=== PATIENT | male | born 1975 | race Caucasian/White ===

== ENCOUNTER → 2018-12-05 | Day surgery (SDC) | payer OTHER ==
[~2018-12-05] MED LIST: ACETAMINOPHEN/CODEINE 300MG - 30MG TAB ONE; ATORVASTATIN CA20 MG PO; DEXAMETHASONE SOD PHOS INJ 4 MG/ML VIAL ONE; EPINEPHRINE HCL 1:1000 1ML 1 MG/ML AMP ONE; FENTANYL CITRATE/PF 100MCG/2 ML INJ ONE; GLYCOPYRROLATE INJ 1MG/ 5 ML SYR ONE; LIDOCAINE 1% W/EPINEPHRINE 20 ML VIAL ONE; LIDOCAINE HCL 2% JELLY 5 ML TUBE ONE; LIDOCAINE HCL 2% LOCAL INJ 5 ML SDV VIAL INJ ONE; MIDAZOLAM HCL 2 MG/2 ML VIAL ONE; NEOSTIGMINE 5 MG/5ML SYR ONE; OMEPRAZOLE40 MG PO; ONDANSETRON HCL INJ 2MG/ML 2ML 2 MG/ML VIAL ONE; PROPOFOL IV EMULSION 10 MG/ML 20 ML VIAL ONE; ROCURONIUM BROMIDE 10 MG/ML 5ML VIAL ONE; SCOPOLAMINE 1.5 MG PATCH ONE; SEVOFLURANE INHAL SOLN 250 ML PEN BTL ONE; VITAMIN B-121000 MCG PO; VITAMIN D35000 UNIT PO; trintellix PO
--- OUTSIDE RECORDS SUMMARY | 2018-12-05 06:49 | XMS REPORT | Clinical Summary ---
Author Author [facility] Address Unknown Phone Unavailable Care Team Providers Care Office Admin Name Role Phone Davion Ramey MD PCP Unavailable Allergies Comments Active Allergy Reactions Severity Noted Date Iodine Anaphylaxis High 12/07/2017 Levofloxacin Hives 12/07/2017 Medications End Date Status Medication Sig Dispensed Refills Start Date Active omeprazole (PriLOSEC) 40 Take 40 mg by 0 MG capsule mouth daily. 8 Active TRINTELLIX 10 mg tablet TK 1 T PO QD 5 8 Active sildenafil (VIAGRA) 50 MG Take 50 mg by 0 tablet mouth daily 8 as needed. Active atorvastatin (LIPITOR) 20 TK 1 T PO QD 0 03/20/201 MG tablet 8 03/07/2018 Discontinued sertraline (ZOLOFT) 100 TK 1 T PO QD 1 10/19/201 MG tablet 8 03/27/2018 Discontinued simvastatin (ZOCOR) 10 MG Take 10 mg by 0 tablet mouth nightly. 03/27/2018 Discontinued testosterone cypionate Inject into 0 (DEPOTESTOTERONE the shoulder, CYPIONATE) 200 mg/mL thigh, or injection buttocks every 14 (fourteen) days. 03/08/2018 Discontinued sodium,potassium,mag Used As 2 Bottle 0 sulfates (SUPREP BOWEL directed 8 PREP KIT) 17.5-3.13-1.6 gram recon soln 03/07/2018 Discontinued cholecalciferol, vitamin Take 1,000 0 D3, (VITAMIN D3) 1,000 Units by unit tablet mouth daily. Active Problems Problem Noted Date Celiac disease 09/20/2018 Obesity (BMI 30.0-34.9) 09/20/2018 Encounters Care Team Description Date Type Specialty Altagracia Jimenez MD Celiac disease (Primary Dx); Obesity (BMI 30.0-34.9) 09/20/2018 Office Visit Gastroenterology Altagracia Jimenez MD Celiac disease (Primary Dx); Adenomatous polyp of colon, unspecified part of colon; Class 1 obesity due to excess calories without serious comorbidity with body mass index (BMI) of 31.0 to 31.9 in adult 03/27/2018 Office Visit Gastroenterology Herberth Shelton MD 03/08/2018 Anesthesia Gastroenterology Event Enoc Jeronimo MD COLONOSCOPY with bx and snare 03/08/2018 Surgery Gastroenterology Enoc Jeronimo MD Diarrhea; Chronic GERD 03/08/2018 Hospital Gastroenterology Encounter Altagracia Jimenez MD 02/17/2018 Telephone Gastroenterology Ema Coats LPN 01/03/2018 Telephone Gastroenterology Altagracia Jimenez MD Gastroesophageal reflux disease, esophagitis presence not specified (Primary Dx); Diarrhea, unspecified type; Former tobacco use; Class 1 obesity due to excess calories without serious comorbidity with body mass index (BMI) of 31.0 to 31.9 in adult 12/07/2017 Office Visit Gastroenterology after 12/04/2017 Family History Medical History Relation Name Comments Heart defect Father Relation Name Status Comments Father Alive Mother Alive Social History Date Tobacco Use Types Packs/Day Years Used Quit: 12/07/2006 Former Smoker Cigarettes 0.5 15 Smokeless Tobacco: Former User Alcohol Use Drinks/Week oz/Week Comments Yes 1 Cans of 0.6 rarely beer Sex Assigned at Date Recorded Not on file Industry Job Start Date Occupation Not on file Not on file Not on file Travel End Travel History Travel Start No recent travel history available. Last Filed Vital Signs Time Taken Vital Sign Reading 09/20/2018 8:51 AM CDT Blood Pressure 117/77 09/20/2018 8:51 AM CDT Pulse 69 09/20/2018 8:51 AM CDT Temperature 36.7 C (98 F) 03/27/2018 11:18 AM CDT Respiratory Rate 14 03/08/2018 8:35 AM CDT Oxygen Saturation 97% - Inhaled Oxygen - Concentration 09/20/2018 8:51 AM CDT Weight 101 kg (222 lb 9.6 oz) 09/20/2018 8:51 AM CDT Height 180.3 cm (5' 11") 09/20/2018 8:51 AM CDT Body Mass Index 31.05 Plan of Treatment Care Team Description Date Type Specialty Altagracia Jimenez MD [address] [facility] [address] [place] [address] 04/11/2019 Office Visit Gastroenterology Health Maintenance Due Date Last Done Comments INFLUENZA VACCINE 01/25/2019 Procedures Comments Procedure Name Priority Date/Time Associated Diagnosis IMMUNOGLOBULIN A Routine 09/20/2018 10:35 AM CDT ENDOMYSIAL ANTIBODY TITER Routine 09/20/2018 10:35 AM CDT ENDOMYSIAL ANTIBODY Routine 09/20/2018 SCREEN (IGA) 10:35 AM CDT TISSUE TRANSGLUTAMINASE Routine 09/20/2018 AB, IGA 10:35 AM CDT TISSUE TRANSGLUTAMINASE Routine 09/20/2018 AB, IGG 10:35 AM CDT GLIADIN ANTIBODY, IGA Routine 09/20/2018 10:35 AM CDT GLIADIN (DEAMIDATED) AB Routine 09/20/2018 (IGG) 10:35 AM CDT VITAMIN D 25 HYDROXY Routine 09/20/2018 Celiac disease LEVEL 10:35 AM CDT VITAMIN B12 LEVEL Routine 09/20/2018 Celiac disease 10:35 AM CDT FOLATE LEVEL Routine 09/20/2018 Celiac disease 10:35 AM CDT SURGICAL PATHOLOGY Routine 03/08/2018 REQUEST 9:47 AM CDT ESOPHAGOGASTRODUODENOSCOP 03/08/2018 Diarrhea Y (EGD) 7:30 AM CDT Chronic GERD COLONOSCOPY 03/08/2018 Diarrhea 7:30 AM CDT Chronic GERD IMMUNOGLOBULIN A Routine 12/13/2017 2:37 PM CDT ENDOMYSIAL ANTIBODY TITER Routine 12/13/2017 2:37 PM CDT ENDOMYSIAL ANTIBODY Routine 12/13/2017 SCREEN (IGA) 2:37 PM CDT TISSUE TRANSGLUTAMINASE Routine 12/13/2017 AB, IGA 2:37 PM CDT TISSUE TRANSGLUTAMINASE Routine 12/13/2017 AB, IGG 2:37 PM CDT GLIADIN ANTIBODY, IGA Routine 12/13/2017 2:37 PM CDT GLIADIN (DEAMIDATED) AB Routine 12/13/2017 (IGG) 2:37 PM CDT VITAMIN D 25 HYDROXY Routine 12/13/2017 Diarrhea, unspecified LEVEL 2:37 PM CDT type after 12/04/2017 Results * Endomysial antibody titer (09/20/2018 10:35 AM CDT) Only the most recent of 2 results within the time period is included. Endomysial TNP titer [facility] antibody titer Comment: [facility] Test Not Performed. Screening [facility] test Negative or Not Detected. Titer not performed. Specimen Narrative Performed At FASTING:NO [facility] FASTING: NO Resulting Agency Comment Performing Organization Information: Site ID: [id number] Name: [facility] [facility], Address: [address] [place] [phone] Director: Cynthia Powers MD,PhD,ART Performing Organization Address City/State/Zipcode Phone Number [facility] [address] [place] [address] [facility] [id number] * Endomysial antibody screen (IgA) (09/20/2018 10:35 AM CDT) Only the most recent of 2 results within the time period is included. Endomysial NEGATIVE NEGATIVE [facility] antibody scr [facility] (IgA) w/refl to [facility] titer Specimen Narrative Performed At FASTING:NO [facility] FASTING: NO Resulting Agency Comment Performing Organization Information: Site ID: [id number] Name: [facility]/[employer] [facility], Address: [address] [place] [phone] Director: Cynthia Powers MD,PhD,ART Performing Organization Address [facility] Phone Number [facility] [address] [place] [address] [facility] [address] * Gliadin (Deamidated) Ab (IgG) (09/20/2018 10:35 AM CDT) Only the most recent of 2 results within the time period is included. Gliadin IgG 3 <20 U [facility] Comment: [facility] Reference Ranges for Gliadin [facility] (Deamidated Peptide) Antibody (IgG): <20 unitsAntibody Not Detected > or=20 unitsAntibody Detected Specimen Narrative Performed At FASTING:NO [facility] FASTING: NO Resulting Agency Comment Performing Organization Information: Site ID: [id number] Name: [facility], Address: [address] [place] [phone] Director: Cynthia Powers MD,PhD,ART Performing Organization Address [facility] Phone Number [employer] [facility]/[employer] [address] [place] [address] [facility] [phone] * Gliadin antibody, IgA (09/20/2018 10:35 AM CDT) Only the most recent of 2 results within the time period is included. Gliadin IgA 8 <20 U [facility] Comment: [facility] Reference Ranges for Gliadin [facility] (Deamidated Peptide) Antibody (IgA): <20 unitsAntibody Not Detected > or=20 unitsAntibody Detected Specimen Narrative Performed At FASTING:NO [facility] FASTING: NO Resulting Agency Comment Performing Organization Information: Site ID: [id number] Name: [facility], Address: [address] [place] [phone] Director: Cynthia Powers MD,PhD,ART Performing Organization Address [facility] Phone Number [employer] [facility] [address] [place] [address] [facility] [address] * Tissue transglutaminase Ab, IgA (09/20/2018 10:35 AM CDT) Only the most recent of 2 results within the time period is included. Tissue 2 U/mL [facility] transglutaminas Comment: DIAGNOSTICS/BERTIN e Ab, IgA <4 No Antibody [facility] Detected > OR=4 Antibody Detected Specimen Narrative Performed At FASTING:NO [facility] FASTING: NO Resulting Agency Comment Performing Organization Information: Site ID: [id number] Name: [facility] [facility], Address: [address] [place] [address] Director: Cynthia Powers MD,PhD,ART Performing Organization Address [facility] Phone Number [facility] [address] [place] [address] [facility] [address] * Tissue transglutaminase Ab, IgG (09/20/2018 10:35 AM CDT) Only the most recent of 2 results within the time period is included. Tissue 3 U/mL [facility] transglutaminas Comment: DIAGNOSTICS/BERTIN e Ab, IgG <6 No Antibody [facility] Detected > OR=6 Antibody Detected Specimen Narrative Performed At FASTING:NO [facility] FASTING: NO Resulting Agency Comment Performing Organization Information: Site ID: [id number] Name: [facility] [facility], Address: [address] [place], [place] [id number] Director: Cynthia Powers MD,PhD,ART Performing Organization Address [facility] Phone Number [facility] [address] [place] [address] [facility] [phone] * Vitamin D 25 hydroxy level (09/20/2018 10:35 AM CDT) Only the most recent of 2 results within the time period is included. Vitamin D, 28 (L) 30 - 100 ng/mL [facility] 25-hydroxy Comment: DIAGNOSTICS Vitamin D RUSSO Status 25-OH Vitamin D: Deficiency: <20 ng/mL Insufficiency: 20 - 29 ng/mL Optimal: > or=30 ng/mL For 25-OH Vitamin D testing on patients on D2-supplementation and patients for whom quantitation of D2 and D3 fractions is required, the QuestAssureD() 25-OH VIT D, (D2,D3), LC/MS/MS is recommended: order code 20073 (patients >2yrs). For more information on this test, go to: http://education.Metaforic/faq/AIZ287 (This link is being provided for informational/educational purposes only.) Specimen Blood Narrative Performed At FASTING:NO [facility] FASTING: NO Resulting Agency Comment Performing Organization Information: Site ID: [id number] Name: [facility] Address: [address] [place] [phone] Director: Daniella Hatch Performing Organization Address [facility] [place] [address] * Immunoglobulin A (09/20/2018 10:35 AM CDT) Only the most recent of 2 results within the time period is included. IgA 326 81 - 463 mg/dL [employer] Specimen Narrative Performed At FASTING:NO [facility] FASTING: NO Resulting Agency Comment Performing Organization Information: Site ID: [id number] Name: [facility], Address: [address] [place] [phone] Director: Cynthia Powers MD,PhD,ART Performing Organization Address [facility] Phone Number [facility] [phone] [facility] [phone] * Folate level (09/20/2018 10:35 AM CDT) Pathologist [facility] Folate >24.0 ng/mL [facility] Comment: [facility] Reference Range Low: <3.4 Borderline:3.4-5.4 Normal:>5.4 Specimen Blood Narrative Performed At FASTING:NO [facility] FASTING: NO Resulting Agency Comment Performing Organization Information: Site ID: [id number] Name: [facility] Address: [address] [place] [phone] Director: Daniella Hatch Performing Organization Address [facility] Phone Number [facility] [address] [address] * Vitamin B12 level (09/20/2018 10:35 AM CDT) Vitamin B12 545 200 - 1,100 pg/mL [facility] [place] Specimen Blood Narrative Performed At FASTING:NO [facility] FASTING: NO Resulting Agency Comment Performing Organization Information: Site ID: [id number] Name: [facility] Address: [address] [place] [address] Director: Daniella Hatch Performing Organization Address City/State/Zipcode Phone Number [facility] [employer] [place] [address] [place] [phone] * Surgical pathology request (03/08/2018 9:47 AM CDT) [facility] [place] [facility] MEDICINE Surgical See link below for PDF Lab [facility] [place] Report OF PATHOLOGY report AND GENOMIC MEDICINE Result status This is Final Report for [facility] [id number] OF PATHOLOGY AND GENOMIC MEDICINE Specimen Performing Organization Address City/State/Zipcode Phone Number [facility] [place] [address] PATHOLOGY AND GENOMIC MEDICINE after 12/04/2017 Insurance Type Payer Benefit Subscriber ID Effective Phone Address Plan / Dates Group HMO CIGNA CIGNA OPEN xxxxxxxxxxx 2010-P ACCESS/NET resent WORK Advance Directives Patient has advance care planning documents on file. For more information, gina conley contact: Jarvis Cuenca [address] [place] [address]
--- NOTE | 2018-12-05 07:39 | Pre Op History & Physical ---
DATE OF SURGERY: 12/04/2018. CHIEF COMPLAINT: Chronic sinusitis, nasal obstruction. HISTORY OF PRESENT ILLNESS: This 42 years old male has history of nasal obstruction, postnasal drip, and discharge from his nose. The patient has frontal and maxillary pain. He has decreased sense of smell. The patient's condition has been treated for more than 10 weeks with topical nasal steroid, decongestant, and antibiotics with no improvement. A CT scan of paranasal sinuses was done in September of 2018 after treatment showed the patient has chronic sinusitis involvement of frontal sinus, ethmoid sinuses, maxillary sinus, and sphenoid sinus, and deviated nasal septum to the right side. REVIEW OF SYSTEMS: System review showed no recent cardiovascular, respiratory, or GI problem. PAST MEDICAL HISTORY: The patient has no significant medical problem. PAST SURGICAL HISTORY: The patient has a previous vasectomy, right ulnar fracture, bilateral shoulder surgery, and inguinal hernia repair. SOCIAL HISTORY: The patient has stopped smoking about 11 years ago as a social drinker. ALLERGIES: HE IS ALLERGIC TO LEVAQUIN AND IODINE. MEDICATIONS: He is on omeprazole, testosterone, simvastatin, and sertraline, FAMILY HISTORY: Noncontributory. PHYSICAL EXAMINATION: VITAL SIGNS: On examination, the patient's vital signs were within normal limits. HEENT: Ear exam showed normal tympanic membranes bilaterally. Nasal exam showed deviated nasal septum on the right side about 60%. Oropharynx and oral cavity show 2+ tonsils bilaterally with Mallampati level 2. NECK: No lymph node or thyroid palpable. CHEST: Good air entry bilaterally. CARDIOVASCULAR: S1, S2. No murmur noted. ASSESSMENT AND PLAN: Mr. Mujica has chronic sinusitis, nasal obstruction which has been resistant to conservative therapy. The suggested treatment is endoscopic sinus surgery, septoplasty, resection, inferior turbinate, and other necessary procedure. Complication of procedure includes, but not limited to bleeding, infection, CSF leak, blindness, double vision, meningitis, septal perforation, septal hematoma, persistent nasal obstruction, persistent crusting, nasal deformity, persistent sinus problem and worsening of the sleep apnea. Alternatives will be continue observation, continue antibiotic therapy, topical nasal steroid therapy, systemic steroid therapy, and decongestant. The patient has elected to undergo surgical procedure. MD RAUL Bowden/NAE /[id number]
[2018-12-05 12:00] VITALS: BP 132/88
--- NOTE | 2018-12-07 12:01 | Operative Report ---
DATE OF PROCEDURE: 12/05/2018 SURGEON: Felix Robles MD CHIEF COMPLAINT: Chronic sinusitis, nasal obstruction. POSTOPERATIVE DIAGNOSES: Chronic sinusitis, nasal obstruction. OPERATIVE PROCEDURE: Bilateral exploration of nasofrontal recess area, bilateral sphenoidectomy, bilateral anterior and posterior ethmoidectomy, bilateral resection of tissue of maxillary antrum, bilateral maxillary sinus antrostomy, septoplasty. ANESTHESIA: Anesthesiology group. INDICATIONS: This 42 years old male has history of nasal obstruction. The patient has postnasal drip discharge from his nose. The patient has no epistaxis. The patient does have decreased sense of smell. His condition has been treated by his family doctor, Dr. Ramey and myself for over 10 weeks with no improvement. On examination, he was noted deviated nasal septum to the right side anteriorly about 60% with hypertrophied inferior turbinate. A CT scan of paranasal sinuses done before surgery showed the patient has chronic sinusitis with involvement of the frontal sinus on both sides, ethmoid sinuses both anterior and posterior on both sides, maxillary sinus involvement on both sides, sphenoid sinus involvement bilaterally and also confirmed deviated nasal septum to the right. It was decided that endoscopic sinus surgery, septoplasty, and other necessary procedures will be beneficial for him. DESCRIPTION OF PROCEDURE: The patient was taken to the operating room, put under general anesthesia, endotracheally intubated. The nose was injected with 1% Xylocaine with 1:100,000 epinephrine for hemostasis. Epinephrine-soaked pledget was inserted into the nose and these were subsequently removed. The left paranasal sinuses were approached first. The middle turbinate was medialized. Using Entellus device, the frontal sinus was entered. Nasofrontal recess area was dilated with a balloon. The frontal sinus subsequently was irrigated with copious amount of normal saline, debris and tissue were irrigated out. The bulla ethmoidalis was entered, anterior and posterior ethmoid sinuses were dissected in a systematic fashion. Inflamed tissue was noted in both the anterior and posterior ethmoid sinus area. Care was taken during dissection to ascertain, although it was not entered. The sphenoid sinus was entered through the natural ostium and this was enlarged. This was done using a micro shaver. Inflamed tissues of the sphenoid sinus was dissected using a micro shaver. Using a curved probe, the natural ostium of the maxillary sinus was entered. This was enlarged anteriorly and posteriorly using backbiter and Thru-Cut forceps respectively. Inflamed tissue of the maxillary antrum was dissected using the up-biting Thru-Cut forceps. The right paranasal sinuses were approached. Again, using Entellus device, after the middle turbinate was medialized, the frontal sinus was entered. The nasofrontal recess area was dilated with a balloon. The frontal sinus was irrigated with copious amount of normal saline, debris and tissue were irrigated out. The bulla ethmoidalis was entered, anterior and posterior ethmoid sinuses were dissected in systematic fashion. Inflamed tissue in both the anterior and posterior ethmoid sinuses was dissected in a systematic fashion. Care was taken during dissection to ascertain, although it was not entered. Using a curved probe, the natural ostium of the maxillary sinus was entered. This was enlarged anteriorly and posteriorly using backbiter and Thru-Cut forceps respectively. Inflamed tissue in the maxillary antrum was dissected using the micro shaver. The sphenoid sinus was entered through the natural ostium. This was enlarged using micro shaver and inflamed tissue in the sphenoid sinus dissected using the micro shaver. Septoplasty was performed. A Hemitransfixion incision was done on the left side. The mucoperichondrial flap was elevated on the left. The bony and cartilaginous junction was encountered and this was . Perpendicular plate of the ethmoid was transected, this was removed along with the vomer. The septal spur cartilaginous portion removed using a Wingate elevator and the bony spur removed using a 4 mm straight chisel. Quadrangular cartilage after being freed from posterior inferior constraint was able to swing back in the midline. The hemitransfixion incision was closed using 4-0 chromic suture in the interrupted fashion. The septal whipstitch was tied using 4-0 plain gut suture to reapproximate the mucoperichondrial flap and prevent septal hematoma formation. The nasal pole was inserted in the sinus cavities on either side. This was done to prevent synechiae formation and for hemostasis. The patient tolerated the above procedure well with estimated blood loss about 30 mL. He was given 20 mg of Decadron intraoperatively. The patient was able to be transferred to recovery room in stable condition. MD RAUL Bowden/NAE /[id number]
== END | disposition home or self-care (01) ==
LOC: OR 06:47
PROVIDERS: ATTEND Otolaryngology Otolaryngology/Facial Plastic Surgery
DX: J32.0 Chronic maxillary sinusitis (principal); J32.1 Chronic frontal sinusitis; J32.3 Chronic sphenoidal sinusitis; J32.2 Chronic ethmoidal sinusitis; J34.2 Deviated nasal septum; J33.8 Other polyp of sinus; J34.3 Hypertrophy of nasal turbinates; K21.9 Gastro-esophageal reflux disease without esophagitis; G47.33 Obstructive sleep apnea (adult) (pediatric); Z88.1 Allergy status to other antibiotic agents; Z91.041 Radiographic dye allergy status; Z87.891 Personal history of nicotine dependence
CPT/HCPCS: 30520; 31253; 31259; 31267; 88300; 88305; J0171; J1100; J2001 ×2; J2250; J2405; J2704; J3490; 88304